=== PATIENT | male | born 2000 | race African-American/Black ===

== ENCOUNTER 2018-09-10 17:14 | Emergency (ER) | payer SELFPAY ==
[~2018-09-10] VITALS: Ht 167.6 cm; Wt 81.0 kg
[2018-09-10 21:05] VITALS: BP 133/81
== END 2018-09-10 21:00 | disposition home or self-care (01) ==
LOC: ER 17:38
DX: J02.9 Acute pharyngitis, unspecified (principal); K12.0 Recurrent oral aphthae
CPT/HCPCS: 99281